=== PATIENT | male | born 1965 | race Caucasian/White ===

== ENCOUNTER 2019-03-10 13:30 | Emergency (ER) | payer BC ==
[2019-03-10] MEDS ORDERED: NS 0.9% 1000 ML** 1,000 ML IV ONE ×2 (14:42→18:13)
--- NOTE | 2019-03-10 14:43 | ED ---
Abdominal Pain/Male - HPI Summary HPI Summary: Patient is a 53 y/o M presenting to the ED for a chief complaint of intermittent RLQ abdominal pain. Patient states the abdominal pain began 2 days ago and had a duration of 5 hours before resolving. He continued to have pain on the morning of 03/10/19 that resolved. He also admits nausea, decreased appetite, and a right inguinal hernia. Patient denies fever, vomiting, diarrhea , constipation, testicular pain, dysuria, or hematuria. He denies similar symptoms in the past. Patient denies any significant PMHx or PSHx. Patient is a former smoker. He denies alcohol or drug use. - History of Current Complaint Chief Complaint: EDAbdPain Stated Complaint: ABDOMINAL PAIN PER PT Time Seen by Provider: 03/10/19 14:36 Hx Obtained From: Patient Onset/Duration: Sudden Onset, Lasting Hours - 5 hours, Resolved Timing: Intermittent Severity Initially: Mild Severity Currently: Mild Pain Intensity: 0 Pain Scale Used: 0-10 Numeric Location: Discrete At: RLQ Radiates: No Character: Not Applicable Aggravating Factor(s): Nothing Alleviating Factor(s): Nothing Associated Signs And Symptoms: Positive: Decreased Appetite, Nausea. Negative: Fever, Constipation, Urinary Symptoms - Negative dysuria or hematuria, Vomiting , Diarrhea, Other - Negative testicular pain; positive right inguinal hernia - Allergies/Home Medications Allergies/Adverse Reactions: Allergies Allergy/AdvReac Type Severity Reaction Status Date / Time No Known Allergies Allergy Verified 03/10/19 14:42 PMH/Surg Hx/FS Hx/Imm Hx Previously Healthy: Yes Endocrine/Hematology History: Denies: Hx Diabetes Cardiovascular History: Denies: Hx Hypercholesterolemia, Hx Hypertension Sensory History: Denies: Hx Legally Blind, Hx Deafness Opthamlomology History: Denies: Hx Legally Blind EENT History: Denies: Hx Deafness - Surgical History Surgical History: None Surgery Procedure, Year, and Place: None Infectious Disease History: No Infectious Disease History: Denies: Traveled Outside the [place] in Last 30 Days - Family History Known Family History: Negative: Hypertension, Diabetes - Social History Occupation: Employed Full-time Lives: With Family Alcohol Use: None Hx Substance Use: No Substance Use Type: Reports: None Hx Tobacco Use: Yes Smoking Status (MU): Former Smoker Review of Systems Positive: Other - Positive decreased appetite. Negative: Fever Positive: Abdominal Pain - RLQ, resolved, Nausea, Other - Positive right inguinal hernia; negative constipation. Negative: Vomiting, Diarrhea Negative: dysuria, hematuria, pain - Testicular All Other Systems Reviewed And Are Negative: Yes Physical Exam - Summary Physical Exam Summary: Constitutional: Well-developed, Well-nourished, Alert. (-) Distressed Skin: Warm, Dry HENT: Normocephalic; Atraumatic Eyes: Conjunctiva normal Neck: Musculoskeletal ROM normal neck. (-) JVD, (-) Stridor, (-) Tracheal deviation Cardio: Rhythm regular, rate normal, Heart sounds normal; Intact distal pulses; Radial pulses are 2+ and symmetric. (-) Murmur Pulmonary/Chest wall: Effort normal. (-) Respiratory distress, (-) Wheezes, (-) Rales Abd: Soft, (-) Distension, (-) Guarding, (-) Rebound. McBurney's point tenderness, negative Obturator's sign. Musculoskeletal: (-) Edema Lymph: (-) Cervical adenopathy Neuro: Alert, Oriented x3 Psych: Mood and affect Normal Triage Information Reviewed: Yes Vital Signs On Initial Exam: Initial Vitals Temp Pulse Resp BP Pulse Ox 98.4 F 65 14 155/98 98 03/10/19 13:52 03/10/19 13:52 03/10/19 13:52 03/10/19 13:52 03/10/19 13:52 Vital Signs Reviewed: Yes Procedures - Sedation Patient Received Moderate/Deep Sedation with Procedure: No Diagnostics - Vital Signs Vital Signs Temp Pulse Resp BP Pulse Ox 03/10/19 13:52 98.4 F 65 14 155/98 98 - Laboratory Result Diagrams: 03/10/19 15:50 03/10/19 15:50 Lab Statement: Any lab studies that have been ordered have been reviewed, and results considered in the medical decision making process. - CT Abdomen/Pelvis CT CT Interpretation Completed By: Radiologist Summary of CT Findings: Abdomen/Pelvis CT IMPRESSION: 1. HIGH-GRADE PARTIAL SMALL BOWEL OBSTRUCTION WHICH APPEARS TO BE SECONDARY TO A RIGHT INGUINAL HERNIA. 2. SMALL AMOUNT OF FREE INTRAPERITONEAL FLUID. 3. LARGE MASS IN THE LEFT INGUINAL REGION. RECOMMEND CLINICAL CORRELATION. Reviewed by Dr. Bass. Re-Evaluation - Re-Evaluation First Eval Re-Evaluation Time: 19:28 Change: Improved Comment: At 19:28, patient is tolerating PO and will be discharged. Abdominal Pain Male Course/Dx - Course Course Of Treatment: Patient is here with intermittent abdominal pain with no other symptoms. Patient was tender at his appendix which seemed atypical given his clinical presentation so CT scan was ordered to rule out appendicitis. Patient had a negative CT scan for appendicitis but he did have a SBO secondary to a right inguinal hernia. On my reexamination of patient, there is no hernia present and I believe it spontaneously reduced. 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 Surgery was consultated and they recommended PO challenge and follow up tomorrow with them and they will arrange a pathology consultation for biopsy. - Diagnoses Provider Diagnoses: Lymphadenopathy, Bowel obstruction, Right inguinal hernia - Provider Notifications Discussed Care Of Patient With: Yuri Jaquez - At 18:10, Dr. Jaquez recommends PO and if well-tolerated to follow up with him tomorrow and a follow up with a pathologist which Dr. Jaquez will arrange in the morning. Time Discussed With Above Provider: 18:10 Discharge ED - Sign-Out/Discharge Documenting (check all that apply): Patient Departure - Discharge - Discharge Plan Condition: Stable Disposition: HOME Prescriptions: Acetaminophen with Codeine [Acetaminophen-Cod #3 Tablet] 1 each PO Q8HR PRN #12 tablet MDD 3 tablets PRN Reason: Pain - Severe Patient Education Materials: Bowel Obstruction (ED) Referrals: [facility] [Outside] Yuri Jaquez MD [Medical Doctor] - Additional Instructions: CALL DR. JAQUEZ IN THE MORNING TO ARRANGE AN APPOINTMENT WITH A PATHOLOGIST. RETURN TO THE EMERGENCY DEPARTMENT FOR WORSENING ABDOMINAL PAIN, VOMITING, OR ANY OTHER CONCERNING SYMPTOMS. - Billing Disposition and Condition Condition: STABLE Disposition: Home - Attestation Statements Document Initiated by Margaritoibe: Yes Documenting Scribe: Falguni Walton Provider For Whom Chriss is Documenting (Include Credential): Jordy Bass MD Scribe Attestation: Falguni Davenport, ecsared for Jordy Bass MD on 03/10/19 at 2005. Scribe Documentation Reviewed: Yes Provider Attestation: The documentation as recorded by the Falguni piper accurately reflects the service I personally performed and the decisions made by me, Jordy Bass MD Status of Scribe Document: Viewed
[2019-03-10] MEDS ORDERED: Ondansetron INJ* 2 MG/ML VIAL IV ONE (15:40)
[2019-03-10] MEDS ORDERED: Morphine 4 MG/ML VIAL (1 ml) 4 MG/ML VIAL IV ONE ×2 (15:45→17:39)
[2019-03-10 15:59] LABS: ABS Basophils 0.1 10^3/ul (0-0.2); ABS Eosinophils 0.1 10^3/ul (0-0.6); ABS Lymphocytes 1.4 10^3/ul (1.0-4.8); ABS Monocytes 0.7 10^3/ul (0-0.8); ABS Neutrophils 10.7 10^3/ul (1.5-7.7); Eosinophil % 0.4 %; Hematocrit 43 % (42-52); Hemoglobin 14.5 g/dL (14.0-18.0); Lymphocyte % 10.6 %; Mean Corpuscular HGB Conc 34 g/dL (31-36); Mean Corpuscular Hemoglobin 31 pg (27-31); Mean Corpuscular Volume 92 fL (80-94); Mean Platelet Volume 6.7 fL (7.4-10.4); Nucleated Red Blood Cells % 0.1; Platelet Count 342 10^3/uL (150-450); Red Blood Count 4.65 10^6 /uL (4.18-5.48); Red Cell Distribution Width 13 % (10-15); White Blood Count 12.8 10^3/uL (3.5-10.8)
[2019-03-10 16:38] LABS: Albumin 4.2 g/dL (3.2-5.2); Albumin/Globulin Ratio 1.2 (1-3); BUN/Creatinine Ratio 17.6 (8-20); C Reactive Protein 1.03 mg/L (<8.01); Calcium 9.3 mg/dL (8.6-10.3); EGFR African American 105.9 (>60); EGFR Non-African American 87.5 (>60); Globulin 3.5 g/dL (2-4); Potassium 4.3 mmol/L (3.5-5.0); Total Bilirubin 0.6 mg/dL (0.2-1.0); Total Protein 7.7 g/dL (6.4-8.9)
[2019-03-10] MEDS ORDERED: Iohexol 300* (CONTRAST) 10 ML SDV IV ONE (16:55)
--- NOTE | 2019-03-10 19:22 | CONS ---
CC: [facility]; [facility] Medicine * SURGICAL CONSULTATION REPORT: DATE OF CONSULT: 03/10/19 - EMERGENCY DEPT LOCATION: Emergency room. HISTORY OF PRESENT ILLNESS: I was contacted by the ER staff to evaluate Mr. Castellano, a 53-year-old gentleman, who presented with 2-day history of intermittent abdominal pain that would be significantly severe at times. It was accompanied with nausea, but no vomiting and intermittent obstipation. The patient cannot remember his last bowel movement. He underwent a CT scan of the abdomen and pelvis with p.o. contrast and IV contrast. These images as well as the report were reviewed. He was noted to have high-grade partial small bowel obstruction secondary to an incarcerated right inguinal hernia. The patient had a small amount of free intraperitoneal fluid and the patient had a large mass in his left inguinal region measuring 7 x 6 x 5 cm. The patient states that he has had problems with constipation in the past and has done well with hydration, 2 L of fluid in the emergency room once. He has noted about the left inguinal bulge for about a year now. He denies any knowledge of a right inguinal hernia. PAST MEDICAL HISTORY: None. PAST SURGICAL HISTORY: None. MEDICATIONS: None. ALLERGIES: No known drug allergies. SOCIAL HISTORY: He lives with his . 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 He is a nonsmoker. He does not have a primary care doctor. FAMILY HISTORY: Colon cancer in his father. REVIEW OF SYSTEMS: No shortness of breath or chest pain. Good exercise tolerance, approximately 20-pound weight loss in the last year. No irritable bowel symptoms. No GERD. No dysuria. Normal bowel habits except for this episode. No endocrine disorders. No skin disorders. No seasonal allergies. Again, the patient does not have a primary care doctor. PHYSICAL EXAM: The patient is afebrile, blood pressure is 141/89 and had been as high as 159/101, respirations 16, 100% on room air, heart rate in the 70s to 80s. He is alert and oriented x3. He is in no apparent distress. Head, ears, eyes, nose, and throat: Normocephalic, atraumatic. Sclerae anicteric. Mucous membranes are moist. Neck: No lymphadenopathy. Abdomen is soft, nondistended , nontender. A 5-cm palpable lesion in the left groin, not consistent with hernia, solid mass, nontender with no overlying skin changes. Right inguinal regional shows no inguinal bulge. The patient has normal testicles that are normally descended without lesion. He does have impulse on Valsalva in the right groin consistent with hernia that has been reduced. Rectal exam not performed. Extremities within normal limits. DIAGNOSTIC STUDIES/LAB DATA: Labs reviewed. White count is 12.8. Chemistry panel reviewed and normal. CT scan as described above. IMPRESSION AND PLAN: A 53-year-old gentleman who presents with abdominal pain that may or may not be secondary to a hernia that seems to reduce easily, but most pressing is a large mass and weight loss over the course of the last year. I believe this mass warrants a fine-needle aspiration and possible incisional biopsy. I discussed this with the patient if he continues to improve while in the ER here, I will recommend discharge home where I can follow up as an outpatient. He should be connected with [facility] as well to get a primary care doctor. I can activate a fine-needle aspiration through the pathology department tomorrow by ordering this through my office. The patient is aware of this. I gave him a business card as well. I would like to see the patient as an outpatient not only to follow up pathology results, but also to discuss a plan with the hernia. This can be repaired, but does not warrant emergent repair at this time. I discussed this entirely with the patient and his . They understand the importance of this and I trust that they will follow up. I also discussed the case with the emergency room doctor who if the patient does not continue to feel well, will look towards an observation admission tonight and he will reach out to me if the patient does not continue to do well as he is at this moment. [id number]/CPS #: [id number] GRIS
[2019-03-10 19:48] VITALS: BP 159/100
== END 2019-03-10 19:47 | disposition home or self-care (01) ==
LOC: ED 13:30
DX: K56.600 Partial intestinal obstruction, unspecified as to cause (principal); R59.0 Localized enlarged lymph nodes; K40.90 Unilateral inguinal hernia, without obstruction or gangrene, not specified as recurrent; R11.0 Nausea; Z87.891 Personal history of nicotine dependence
CPT/HCPCS: 36415; 74177; 80053; 85025; 86140; 96361; 96374; 96375; 96376; 99284; J2270; J2405; Q9967